=== PATIENT | female | born 1995 | race Caucasian/White ===

== ENCOUNTER 2019-07-18 23:49 | Emergency (ER) | payer OTHER ==
[~2019-07-18] VITALS: Ht 175.3 cm; Wt 66.2 kg
[2019-07-18 23:54] VITALS: Ht 175.3 cm; Wt 66.2 kg
[2019-07-19 00:59] LABS: BASOPHIL % 0.3 % (0-2); PLATELET COUNT 300 x10^3mcL (130-400); RED CELL DISTRIBUTION WIDTH 13.4 % (11.5-14.5)
[2019-07-19 01:12] LABS: CALCIUM 9.2 mg/dL (8.5-10.1); CARBON DIOXIDE 22.5 mmol/L (21-32); CHLORIDE SERUM 107 mmol/L (98-107); CREATININE SERUM 0.8 mg/dL (0.6-1.0); GFR1 > 60 mL/min; GLUCOSE SERUM 147 mg/dL (74-106); POTASSIUM SERUM 3.3 mmol/L (3.5-5.1); SODIUM SERUM 142 mmol/L (136-145)
[2019-07-19 01:15] LABS: ALBUMIN 4.2 g/dL (3.4-5.0); ALKALINE PHOSPHATASE 45 U/L (46-116); ALT/SGPT 18 U/L (14-59); AST/SGOT 17 U/L (15-37); TOTAL PROTEIN, SERUM 7.8 g/dL (6.4-8.2)
[2019-07-19 04:00] VITALS: BP 112/77
== END 2019-07-19 04:00 | disposition home or self-care (01) ==
LOC: ED 23:49
DX: K29.20 Alcoholic gastritis without bleeding (principal)
CPT/HCPCS: C9113; J1885; J2270; J2405; J2765; J3010; J3490; J7030; Q0092

== ENCOUNTER 2020-06-19 22:00 | Emergency (ER) | payer OTHER ==
[~2020-06-19] VITALS: Ht 175.3 cm; Wt 67.1 kg
[2020-06-19 22:05] VITALS: Ht 175.3 cm; Wt 67.1 kg
[2020-06-20 01:26] LABS: BASOPHIL % 0.2 % (0.2-1.3); PLATELET COUNT 228 x10^3mcL (179-408); RED CELL DISTRIBUTION WIDTH 13.1 % (12.3-17.7)
[2020-06-20 01:38] LABS: CALCIUM 8.5 mg/dL (8.5-10.1); CARBON DIOXIDE 22.2 mmol/L (21-32); CHLORIDE SERUM 107 mmol/L (98-107); CREATININE SERUM 0.8 mg/dL (0.6-1.0); GFR1 > 60 mL/min; GLUCOSE SERUM 97 mg/dL (74-106); POTASSIUM SERUM 3.9 mmol/L (3.5-5.1); SODIUM SERUM 139 mmol/L (136-145)
[2020-06-20 01:45] LABS: ALBUMIN 3.7 g/dL (3.4-5.0); ALKALINE PHOSPHATASE 37 U/L (46-116); ALT/SGPT 29 U/L (14-59); AMYLASE 98 U/L (25-115); AST/SGOT 19 U/L (15-37); BILIRUBIN TOTAL 0.66 mg/dL (0.20-1.00); LIPASE 120 IU/L (73-393); MAGNESIUM 1.5 mg/dL (1.8-2.4); TOTAL PROTEIN, SERUM 6.4 g/dL (6.4-8.2)
[2020-06-20 03:56] VITALS: BP 123/62
[2020-06-21] MEDS ORDERED: BENADRYL ALLERG25 M1 PO (11:24)
== END 2020-06-20 03:56 | disposition home or self-care (01) ==
LOC: ED 22:00
PROVIDERS: Emergency Medicine
DX: K29.70 Gastritis, unspecified, without bleeding (principal)
CPT/HCPCS: J1630; J2060; J2270; J2405; J7030; Q9967

== ENCOUNTER 2020-06-21 09:59 | Emergency (ER) | payer OTHER ==
[~2020-06-21] VITALS: Ht 175.3 cm; Wt 68.0 kg
[2020-06-21 10:04] VITALS: BP 104/69; Ht 175.3 cm; Wt 68.0 kg
[2020-06-21] MEDS ORDERED: BENADRYL ALLERG25 M1 PO (11:24)
== END 2020-06-21 11:30 | disposition home or self-care (01) ==
LOC: ED 09:59
DX: G25.71 Drug induced akathisia (principal); T43.4X1A Poisoning by butyrophenone and thiothixene neuroleptics, accidental (unintentional), initial encounter; Y92.89 Other specified places as the place of occurrence of the external cause
CPT/HCPCS: J1200

== ENCOUNTER 2020-07-03 22:44 | Emergency (ER) | payer OTHER ==
[~2020-07-03] VITALS: Ht 175.3 cm; Wt 68.0 kg
[~2020-07-03 22:44] MED LIST: BENADRYL ALLERG25 M1 PO
[2020-07-03 22:49] VITALS: BP 140/73; Ht 175.3 cm; Wt 68.0 kg
[2020-07-03 23:56] LABS: BASOPHIL % 0.4 % (0.2-1.3); PLATELET COUNT 312 x10^3mcL (179-408)
[2020-07-04 00:04] LABS: CALCIUM 9.3 mg/dL (8.5-10.1); CARBON DIOXIDE 23.6 mmol/L (21-32); CHLORIDE SERUM 103 mmol/L (98-107); CREATININE SERUM 0.9 mg/dL (0.6-1.0); GFR1 > 60 mL/min; GLUCOSE SERUM 109 mg/dL (74-106); POTASSIUM SERUM 3.9 mmol/L (3.5-5.1); SODIUM SERUM 139 mmol/L (136-145)
[2020-07-04 00:05] LABS: UA SPECIFIC GRAVITY >=1.030 (1.005-1.035); microscopic required? YES; urine erythrocyte 3+ (NEGATIVE)
[2020-07-04 00:08] LABS: ALBUMIN 4.8 g/dL (3.4-5.0); ALKALINE PHOSPHATASE 41 U/L (46-116); ALT/SGPT 21 U/L (14-59); AMYLASE 99 U/L (25-115); AST/SGOT 15 U/L (15-37); BILIRUBIN TOTAL 0.6 mg/dL (0.20-1.00); LIPASE 126 IU/L (73-393); TOTAL PROTEIN, SERUM 7.5 g/dL (6.4-8.2)
== END 2020-07-04 00:20 | disposition home or self-care (01) ==
LOC: ED 22:44
PROVIDERS: Emergency Medicine
DX: F12.99 Cannabis use, unspecified with unspecified cannabis-induced disorder (principal)
CPT/HCPCS: J1630; J2250; J7030

== ENCOUNTER 2020-07-04 08:14 | Emergency (ER) | payer OTHER ==
[~2020-07-04] VITALS: Ht 177.8 cm; Wt 65.8 kg
[2020-07-04 08:18] VITALS: Ht 177.8 cm; Wt 65.8 kg
[2020-07-04 09:30] VITALS: BP 117/43
== END 2020-07-04 09:30 | disposition home or self-care (01) ==
LOC: ED 08:14
DX: G25.71 Drug induced akathisia (principal); Z88.8 Allergy status to other drugs, medicaments and biological substances
CPT/HCPCS: J0515; J1200

== ENCOUNTER 2020-07-05 09:03 | Inpatient (IN) | payer OTHER ==
[~2020-07-05] VITALS: Ht 177.8 cm; Wt 73.5 kg
[2020-07-05 09:06] VITALS: Ht 177.8 cm; Wt 73.5 kg
[2020-07-05 10:59] LABS: RED CELL DISTRIBUTION WIDTH 13.2 % (12.3-17.7)
[2020-07-05 11:02] LABS: BASOPHIL % 0.3 % (0.2-1.3); PLATELET COUNT 250 x10^3mcL (179-408)
[2020-07-05 11:13] LABS: CALCIUM 9.6 mg/dL (8.5-10.1); CARBON DIOXIDE 22.7 mmol/L (21-32); CHLORIDE SERUM 99 mmol/L (98-107); GFR1 > 60 mL/min; GLUCOSE SERUM 112 mg/dL (74-106); POTASSIUM SERUM 4.2 mmol/L (3.5-5.1); SODIUM SERUM 136 mmol/L (136-145)
[2020-07-05 11:18] LABS: ALBUMIN 4.8 g/dL (3.4-5.0); ALKALINE PHOSPHATASE 42 U/L (46-116); ALT/SGPT 19 U/L (14-59); AST/SGOT 25 U/L (15-37); BILIRUBIN TOTAL 1.1 mg/dL (0.20-1.00); TOTAL PROTEIN, SERUM 7.8 g/dL (6.4-8.2)
[2020-07-05 12:39] LABS: UA SPECIFIC GRAVITY >=1.030 (1.005-1.035); microscopic required? YES; urine erythrocyte 3+ (NEGATIVE)
[2020-07-05 13:16] LABS: AMPHETAMINE QUAL UR NONE DETECTED (See below)
[2020-07-05 20:09] VITALS: BP 122/64
[2020-07-05 21:50] VITALS: BP 145/79
[2020-07-06 04:45] VITALS: BP 142/80
[2020-07-06 07:07] LABS: ALBUMIN 3.6 g/dL (3.4-5.0); ALKALINE PHOSPHATASE 28 U/L (46-116); ALT/SGPT 16 U/L (14-59); AST/SGOT 12 U/L (15-37); BILIRUBIN TOTAL 0.75 mg/dL (0.20-1.00); CALCIUM 8.8 mg/dL (8.5-10.1); CHLORIDE SERUM 107 mmol/L (98-107); CREATININE SERUM 0.8 mg/dL (0.6-1.0); GFR1 > 60 mL/min; GLUCOSE SERUM 86 mg/dL (74-106); MAGNESIUM 2.2 mg/dL (1.8-2.4); POTASSIUM SERUM 3.3 mmol/L (3.5-5.1); SODIUM SERUM 139 mmol/L (136-145)
[2020-07-06 07:12] LABS: BASOPHIL % 0.5 % (0.2-1.3); PLATELET COUNT 208 x10^3mcL (179-408); RED CELL DISTRIBUTION WIDTH 12.9 % (12.3-17.7); TOTAL PROTEIN, SERUM 6.1 g/dL (6.4-8.2)
[2020-07-06 08:22] VITALS: BP 109/63
[2020-07-06 11:55] VITALS: BP 106/76
[2020-07-06 17:12] VITALS: BP 113/70
[2020-07-06 20:20] VITALS: BP 107/71
[2020-07-07 04:40] VITALS: BP 108/96
[2020-07-07 06:34] LABS: BASOPHIL % 1.1 % (0.2-1.3); PLATELET COUNT 221 x10^3mcL (179-408); RED CELL DISTRIBUTION WIDTH 12.9 % (12.3-17.7)
[2020-07-07 06:56] LABS: ALBUMIN 3.7 g/dL (3.4-5.0); ALKALINE PHOSPHATASE 31 U/L (46-116); ALT/SGPT 16 U/L (14-59); AST/SGOT 17 U/L (15-37); BILIRUBIN TOTAL 0.7 mg/dL (0.20-1.00); CALCIUM 8.7 mg/dL (8.5-10.1); CARBON DIOXIDE 22.3 mmol/L (21-32); CHLORIDE SERUM 105 mmol/L (98-107); CREATININE SERUM 0.7 mg/dL (0.6-1.0); GFR1 > 60 mL/min; GLUCOSE SERUM 75 mg/dL (74-106); MAGNESIUM 1.9 mg/dL (1.8-2.4); POTASSIUM SERUM 3.8 mmol/L (3.5-5.1); SODIUM SERUM 137 mmol/L (136-145); TOTAL PROTEIN, SERUM 6.2 g/dL (6.4-8.2)
[2020-07-07 08:08] VITALS: BP 110/73
[2020-07-07 12:26] VITALS: BP 127/61
[2020-07-07] MEDS ORDERED: PEPCID AC20 M2 PO (17:43)
[2020-07-07] MEDS ORDERED: ZOF4 PO (17:44)
[2020-07-07 17:57] VITALS: BP 111/72
[2020-07-07 18:30] VITALS: BP 118/75
== END 2020-07-07 18:57 | disposition home or self-care (01) | DRG 251 ==
LOC: ED 09:03 → MU 12:38
PROVIDERS: Internal Medicine Gastroenterology; Specialist; ADMIT Internal Medicine; ATTEND Internal Medicine
PROC: 0DB68ZX Excision of Stomach, Via Natural or Artificial Opening Endoscopic, Diagnostic (ICD-10-PCS; principal; 2020-07-07 12:30)
DX: R10.9 Unspecified abdominal pain (principal); F12.90 Cannabis use, unspecified, uncomplicated; F32.9 Major depressive disorder, single episode, unspecified; F41.9 Anxiety disorder, unspecified; K52.9 Noninfective gastroenteritis and colitis, unspecified; Z79.899 Other long term (current) drug therapy; Z79.01 Long term (current) use of anticoagulants; Z88.8 Allergy status to other drugs, medicaments and biological substances; Z79.891 Long term (current) use of opiate analgesic
CPT/HCPCS: 43235; C9113; G0378; J1170; J1200; J1610; J2060; J2250; J2270; J2310; J2405; J2550; J3010; J3486; J3490; J7030; Q0162; U0003

== ENCOUNTER 2020-07-10 11:39 | Emergency (ER) | payer OTHER ==
[~2020-07-10 11:39] MED LIST changes: +PEPCID AC20 M2 PO; +ZOF4 PO
== END 2020-07-10 11:56 | disposition left against medical advice (07) ==
LOC: ED 11:39
DX: Z53.21 Procedure and treatment not carried out due to patient leaving prior to being seen by health care provider (principal)